=== PATIENT | female | born 1980 | race Caucasian/White ===

== ENCOUNTER 2017-12-03 21:56 | Emergency (ER) | payer OTHER ==
[~2017-12-03] VITALS: Ht 157.5 cm; Wt 74.3 kg
[~2017-12-03 21:56] MED LIST: BUTALB-APAP-CA1 EACH; FLEXERIL10 MG PO; FLONASE16 G1 BOTH NARES; INDERAL60 MG PO; INDOCIN25 MG PO; MEDROL DOSEPAK4 MG PO; METHADONE10 MG PO; MUCINEX D ER T1 EACH PO; NAPROSYN500 MG PO; PEN-VEE K,VEET500 MG PO; PROPRANOLOL HCL60 M1 PO; TYLENOL WITH C1 EACH PO; ZANTAC150 MG PO; ZOFRAN4 MG PO
[2017-12-03] MEDS ORDERED: KEFLEX500 MG PO (23:40)
[2017-12-03 23:57] VITALS: BP 131/73
== END 2017-12-03 23:58 | disposition home or self-care (01) ==
LOC: EME 21:56
DX: S90.561A Insect bite (nonvenomous), right ankle, initial encounter (principal); L08.9 Local infection of the skin and subcutaneous tissue, unspecified; W57.XXXA Bitten or stung by nonvenomous insect and other nonvenomous arthropods, initial encounter; I10 Essential (primary) hypertension; F41.9 Anxiety disorder, unspecified; Z79.891 Long term (current) use of opiate analgesic; F17.200 Nicotine dependence, unspecified, uncomplicated
CPT/HCPCS: 93005; 99281; 99283